=== PATIENT | male | born 1955 | race Caucasian/White ===

== ENCOUNTER 2018-08-12 09:22 | Day surgery (SDC) | payer OTHER ==
[~2018-08-12 09:22] MED LIST: PROPOFOL INJ 200 MG/20 ML VIAL IV ONE
[2018-08-12 11:36] VITALS: BP 112/60
[2018-08-12] MEDS ORDERED: PROPOFOL INJ 200 MG/20 ML VIAL IV ONE (12:42)
--- NOTE | 2018-08-12 13:15 | Operative Report ---
Operative Report DATE OF SURGERY: 08/12/18 Operative Report: The risks, benefits and alternatives of the procedure including the risk of bleeding, perforation requiring surgery are explained to the patient in detail and informed consent is obtained. Patient is taken back to the endoscopy suite and placed in the left, lateral decubital position. Timeout was called. Propofol medication is administered. Rectal examination is done which did not reveal any masses, tears or fissures. An Olympus videoscope was inserted into the patient's rectum. The scope was then carefully advanced all the way to the cecum. Cecum was identified by the usual anatomical landmarks including the ileocecal valve as well as the appendiceal office. Photodocumentation is obtained. Since the patient had previously seen Dr. Kirk the various tattoo sites noticeable in the colon. The scope was then sequentially pulled back via the rest segments of the colon including the ascending colon, hepatic flexure, transverse colon, splenic flexure, descending colon and finally into the rectosigmoid portions of the colon. Retroflexion maneuver is performed. PREOPERATIVE DIAGNOSIS: Personal history of polyps, these were not removed but only site tattooed by Dr. Pinzon POSTOPERATIVE DIAGNOSIS: Sessile polyps noted at each of the tattoo sites. There was one at the hepatic flexure, one at the splenic flexure, 2 in the descending colon, and finally 2 in the sigmoid all of which were removed via snare polypectomy. Diverticulosis. Internal hemorrhoids OPERATION: Colonoscopy with snare polypectomy. Extended procedure time greater than 1 hour SURGEON: YEMI VALLEJO ANESTHESIA: LMAC TISSUE REMOVED OR ALTERED: As noted above. COMPLICATIONS: None. ESTIMATED BLOOD LOSS: None. INTRAOPERATIVE FINDINGS: As noted above. PROCEDURE: Patient tolerated the procedure well. No immediate postprocedure complications are noted. Patient discharged in good condition. Discharge date 08/12/2018. Discharge diet: Regular. Discharge activity: Regular. 2-3-week follow-up to discuss findings. 1 year surveillance colonoscopy. Patient is instructed call the office or proceed to the emergency room should there be any further problems or questions. Wait on the pathology.
== END 2018-08-12 11:35 | disposition home or self-care (01) ==
LOC: END 09:22
PROVIDERS: ATTEND Internal Medicine Gastroenterology
DX: D12.6 Benign neoplasm of colon, unspecified (principal); D12.4 Benign neoplasm of descending colon; D12.5 Benign neoplasm of sigmoid colon; K64.8 Other hemorrhoids; K57.30 Diverticulosis of large intestine without perforation or abscess without bleeding; Z86.010 Personal history of colon polyps; Z80.0 Family history of malignant neoplasm of digestive organs; Z79.899 Other long term (current) drug therapy
CPT/HCPCS: 45385; 811; 88305; J2704

== ENCOUNTER 2019-04-08 07:36 | Day surgery (SDC) | payer OTHER ==
[2019-04-08 06:52] LABS: HEMATOCRIT 45.5 % (37.9-51.0); HEMOGLOBIN 15.7 g/dL (13.5-17.0); MEAN CORPUSCULAR HEMOGLOBIN 31.9 pg (27.0-33.4); MEAN CORPUSCULAR HGB CONC 34.5 g/dL (32.0-36.0); MEAN CORPUSCULAR VOLUME 93 fl (80-97); PLATELET COUNT 111 10^3/uL (150-450); RED BLOOD COUNT 4.91 10^6/uL (4.35-5.55); RED CELL DISTRIBUTION WIDTH 15.3 % (11.5-14.0); WHITE BLOOD COUNT 6.9 10^3/uL (4.0-10.5)
[2019-04-08 07:06] LABS: INTERNATIONAL RATION (INR) 0.92; PROTHROMBIN TIME 12.8 SEC (11.4-15.4)
[2019-04-08 07:13] LABS: ANION GAP 10 (5-19); BLOOD UREA NITROGEN 16 mg/dL (7-20); CARBON DIOXIDE 25 mmol/L (22-30); CHLORIDE 108 mmol/L (98-107); GLUCOSE 88 mg/dL (75-110); POTASSIUM 4.5 mmol/L (3.6-5.0); SODIUM 142.7 mmol/L (137-145)
[~2019-04-08 07:36] MED LIST changes: +ASPIRIN 325 MG TABLET PO ONE; +DIAZEPAM 5 MG TABLET PO PRN; +DIPHENHYDRAMINE HCL 25 MG CAPSULE PO PRN; +HEPARIN SODIUM,PORCINE/NS/PF 2,000 UNIT/1,000 ML RTUINJ IV ONE; +LIDOCAINE 1% INJ-PF (10 MG/ML) 30 ML SDV ONE; +NORMAL SALINE 1000 ML 1,000 ML IV PRN; -PROPOFOL INJ 200 MG/20 ML VIAL IV ONE; +RADIAL COCKTAIL SYRINGE 10 ML IV PRN
--- NOTE | 2019-04-08 07:40 | EKG REPORT ---
SEVERITY:- OTHERWISE NORMAL ECG - SINUS RHYTHM RIGHT AXIS DEVIATION : Confirmed by: Muna Wu MD 08-Apr-2019 07:39:34
[2019-04-08] MEDS ORDERED: MIDAZOLAM HCL INJ 5 MG/1 ML VIAL ONE (07:53)
[2019-04-08] MEDS ORDERED: FENTANYL CITRATE INJ/PF 100 MCG/2 ML AMPUL ONE (07:53)
[2019-04-08] MEDS ORDERED: HEPARIN SOD (PORCINE) 1,000 UNIT/ML 10 ML VIAL ONE (07:53)
--- NOTE | 2019-04-08 09:26 | Operative Report ---
Operative Report DATE OF SURGERY: 04/08/19 PREOPERATIVE DIAGNOSIS: Coronary artery disease abnormal stress test POSTOPERATIVE DIAGNOSIS: Occluded circumflex coronary artery OPERATION: Radial approach left heart catheterization coronary angiography left ventriculography SURGEON: GILBERT FAULKNER ANESTHESIA: Moderate Sedation COMPLICATIONS: None PROCEDURE: After informed consent was obtained the patient was brought to the cardiac catheterization lab and the right wrist was prepared in usual sterile and draped manner. Hemodynamic access was gained using micropuncture technique and the patient was anticoagulated with heparin. An intra-arterial cocktail of verapamil and lidocaine was administered. Selective coronary angiography was performed with a Mason catheter. This was exchanged with pigtail catheter and left ventriculography was performed in standard MEHTA projection. The patient left the Cardiac Catheterization Lab in stable condition, with intact distal pulses and no chest pain or other complications from the procedure. Conscious sedation was initiated, monitored, and maintained during the procedure with the start time of 847 and a completion time of 909 for a total procedure time of 22. A total of 1.5 milligrams of Versed and 75 milligrams and fentanyl were used for conscious sedation. HEMODYNAMIC DATA: Aortic pressure to beginning the case is 102/44 post ventriculography LV pressure is 109/12 aortic pressure on pullback is 100/44 there is no significant gradient across the aortic valve CORONARY ANATOMY: [] ANGIOGRAPHY: [] VENTRICULOGRAPHY: Ventriculography is performed in the MEHTA projection and demonstrates [severely hypo-to akinetic posterior lateral segment of the left ventricle global left ventricular function appears to be well preserved there is calcification of the ascending root and trace to mild mitral regurgitation other regional wall motion is normal] . CORONARY ANGIOGRAPHY: [] LEFT MAIN: [Short but normal] LEFT ANTERIOR DESCENDING: A transapical supplying and LAD there is luminal irregularities but no critical or focal obstructive lesions are seen CIRCUMFLEX CORONARY: The AV groove circumflex after a marginal branch is completely occluded at the site of the prior stent implantation there appears to be a second obtuse marginal and a posterolateral branch that fills retrogradely from left to left collaterals this is a chronic total occlusion RIGHT CORONARY ARTERY: The right coronary artery is dominant supplying the PDA and posterior lateral branches the proximal portion is a 30% stenosis the midportion is a 40% stenosis none of which are flow-limiting IMPRESSION: [ 1. Globally preserved left ventricular systolic function with focal posterior lateral severe hypo-to akinesis 2. No evidence of significant valvular heart disease 3. Single-vessel coronary disease with occlusion of the previously deployed stent 4. Noncritical disease and other vascular distributions Recommendations: Since the patient is asymptomatic continue medical therapy risk factor modification and smoking cessation has been recommended CC Dr. Poe CC Dr. Landa Ros]
[2019-04-08 13:18] VITALS: BP 128/64
== END 2019-04-08 12:25 | disposition home or self-care (01) ==
LOC: CCL 07:36
PROVIDERS: ATTEND Internal Medicine Cardiovascular Disease
DX: I24.0 Acute coronary thrombosis not resulting in myocardial infarction (principal); I25.10 Atherosclerotic heart disease of native coronary artery without angina pectoris; I65.29 Occlusion and stenosis of unspecified carotid artery; I10 Essential (primary) hypertension; E78.5 Hyperlipidemia, unspecified; I73.9 Peripheral vascular disease, unspecified; R09.89 Other specified symptoms and signs involving the circulatory and respiratory systems
CPT/HCPCS: 36415; 83735; 85027; 85610; 80048; 93458; 93005; 93010; J3010; J1644 ×2; J3490 ×4; J2250

== ENCOUNTER 2019-12-06 08:36 | Emergency (ER) | payer OTHER ==
[2019-12-06] MEDS ORDERED: NORMAL SALINE 1000 ML 1,000 ML IV ONE (09:54)
[2019-12-06 10:35] LABS: ABSOLUTE BASOPHILS # (AUTO) 0.1 10^3/uL (0.0-0.2); ABSOLUTE EOSINOPHILS # (AUTO) 0.1 10^3/uL (0.0-0.6); ABSOLUTE LYMPHOCYTES (AUTO) 1.6 10^3/uL (0.5-4.7); ABSOLUTE MONOCYTES (AUTO) 1.1 10^3/uL (0.1-1.4); ABSOLUTE NEUT (AUTO) 6.5 10^3/uL (1.7-8.2); EOSINOPHILS % (AUTO) 0.8 % (0-6); HEMATOCRIT 46.3 % (37.9-51.0); HEMOGLOBIN 16.1 g/dL (13.5-17.0); LYMPHOCYTES % (AUTO) 16.7 % (13-45); MEAN CORPUSCULAR HEMOGLOBIN 31.5 pg (27.0-33.4); MEAN CORPUSCULAR HGB CONC 34.7 g/dL (32.0-36.0); MEAN CORPUSCULAR VOLUME 91 fl (80-97); MONOCYTES % (AUTO) 11.9 % (3-13); PLATELET COUNT 146 10^3/uL (150-450); RED BLOOD COUNT 5.11 10^6/uL (4.35-5.55); RED CELL DISTRIBUTION WIDTH 15.1 % (11.5-14.0); SEGMENTED NEUTROPHILS % (AUTO) 69.6 % (42-78); TOTAL CELLS COUNTED % (AUTO) 100 %; WHITE BLOOD COUNT 9.4 10^3/uL (4.0-10.5)
[2019-12-06 10:43] LABS: ALBUMIN 3.7 g/dL (3.5-5.0); ALKALINE PHOSPHATASE 84 U/L (38-126); ANION GAP 9 (5-19); ASPARTATE AMINO TRANSFERASE 45 U/L (17-59); BILIRUBIN,DIRECT 0.2 mg/dL (0.0-0.4); BILIRUBIN,TOTAL 0.8 mg/dL (0.2-1.3); BLOOD UREA NITROGEN 18 mg/dL (7-20); CALCIUM 9.5 mg/dL (8.4-10.2); CARBON DIOXIDE 27 mmol/L (22-30); CHLORIDE 103 mmol/L (98-107); GLUCOSE 100 mg/dL (75-110); POTASSIUM 4.4 mmol/L (3.6-5.0); TOTAL PROTEIN 6.9 g/dL (6.3-8.2)
[2019-12-06 10:48] LABS: APPEARANCE,URINE SLIGHTLY-CLOUDY; BILIRUBIN,URINE NEGATIVE (NEGATIVE); COLOR,URINE AMBER; GLUCOSE, URINE NEGATIVE (NEGATIVE); KETONES,URINE TRACE mg/dL (NEGATIVE); LEUKOCYTE ESTERASE,URINE NEGATIVE (NEGATIVE); NITRITE,URINE NEGATIVE (NEGATIVE); PROTEIN,URINE 100 mg/dL (NEGATIVE); URINE SPECIFIC GRAVITY 1.027
[2019-12-06] MEDS ORDERED: DOXYCYCLINE HYCLATE 100 MG TABLET PO ONE (11:17)
--- NOTE | 2019-12-06 11:33 | ER Document Report ---
ED General - General Chief Complaint: Skin Sore(s) Stated Complaint: SKIN ISSUES/FEVER Time Seen by Provider: 12/06/19 09:32 Primary Care Provider: FREDY PEREIRA DO [ACTIVE STAFF] - Follow up in 3-5 days (for dermatology follow up) AVE WAGGONER MD [Primary Care Provider] - Follow up in 3-5 days TRAVEL OUTSIDE OF THE [place] IN LAST 30 DAYS: No - HPI Notes: 64 year old male to the ED with with C/O progressively worsening rash to his legs, arms, back and fever with Tmax of 103. States that he began with the rash to his chest, face, and arms on this past Sunday. States that this continues to get worse and then he started to have fevers on Sunday. States he saw his PCP on and was diagnosed with the flu. He was started on Tamiflu. Of note, the patient reports that his influenza swab was negative. States since then, the rash has gotten worse and more painful. He continues to have high fevers. Denies chest pain, SOB, NVD, abd pain, headache, syncope. he does endorse bilateral thigh muscle pain. - Related Data Allergies/Adverse Reactions: No Known Allergies Allergy (Verified 12/06/19 08:43) Home Medications: lipitor 80. plavix 75. lopressor 12.5. nitroglycerin. asa 81. megareds 350. isosorbide mononiter 30. mens multivitamin. advair HFA. tamiflu Past Medical History - General Information source: Patient, Relative - Social History Smoking Status: Current Every Day Smoker Chew tobacco use (# tins/day): No Frequency of alcohol use: None Drug Abuse: None Lives with: Spouse/Significant other Family History: Hypertension Patient has suicidal ideation: No Patient has homicidal ideation: No - Past Medical History Cardiac Medical History: Reports: Hx Coronary Artery Disease, Hx Heart Attack - MARCH 17, 2010 Denies: Hx Hypertension - TAKES METOPROLOL SINCE HAVING HEART STENT PLACED. Pulmonary Medical History: Reports: Hx COPD Denies: Hx Asthma, Hx Bronchitis, Hx Pneumonia Neurological Medical History: Denies: Hx Cerebrovascular Accident, Hx Seizures Musculoskeletal Medical History: Denies Hx Arthritis - Immunizations Hx Diphtheria, Pertussis, Tetanus Vaccination: Yes Hx Pneumococcal Vaccination: 09/12/17 Review of Systems - Review of Systems Constitutional: Chills, Fever, Malaise EENT: No symptoms reported. denies: Ear pain, Nose congestion, Nose discharge, Throat pain Cardiovascular: Chest pain, Palpitations, Heart racing. denies: Dizziness, Lightheaded, Edema Respiratory: denies: Cough, Short of breath Gastrointestinal: denies: Abdominal pain, Diarrhea, Nausea, Vomiting Genitourinary: No symptoms reported Male Genitourinary: No symptoms reported Musculoskeletal: No symptoms reported Skin: See HPI, Rash Hematologic/Lymphatic: No symptoms reported Neurological/Psychological: No symptoms reported -: Yes All other systems reviewed and negative Physical Exam - Vital signs Vitals: Temp Pulse Resp BP Pulse Ox 99.1 F 99 18 148/65 H 97 12/06/19 08:39 12/06/19 08:39 12/06/19 08:39 12/06/19 08:39 12/06/19 08:39 Interpretation: Normal - General General appearance: Appears well, Alert In distress: None - HEENT Head: Normocephalic, Atraumatic Eyes: Normal Pupils: PERRL Ears: Normal External canal: Normal Tympanic membrane: Normal Sinus: Normal Nasal: Normal Mouth/Lips: Normal Mucous membranes: Normal Pharynx: Normal. No: Uvular edema, Potential airway comprom. Neck: Normal, Supple. No: Lymphadenopathy, Meningismus - Respiratory Respiratory status: No respiratory distress. No: Retractions, Tachypnea Chest status: Nontender. No: Accessory muscle use Breath sounds: Normal. No: Decreased air movement, Rales, Rhonchi, Stridor, Wheezing Chest palpation: Normal - Cardiovascular Rhythm: Regular Heart sounds: Normal auscultation Murmur: No - Abdominal Inspection: Normal Distension: No distension Bowel sounds: Normal Tenderness: Nontender Organomegaly: No organomegaly - Back Back: Normal, Nontender, CVA tenderness - Neurological Neuro grossly intact: Yes Cognition: Normal Orientation: AAOx4 Artur Coma Scale Eye Opening: Spontaneous Artur Coma Scale Verbal: Oriented Artur Coma Scale Motor: Obeys Commands Kite Coma Scale Total: 15 Speech: Normal Cranial nerves: Normal Cerebellar coordination: Normal. No: Gait ataxia Motor strength normal: LUE, RUE, LLE, RLE Additional motor exam normals: Equal mustanger. No: Pronator drift Sensory: Normal - Psychological Associated symptoms: Normal affect, Normal mood - Skin Skin Temperature: Warm Skin Moisture: Dry Skin Color: Normal Skin irregularity: Rash - to the legs, arms, back, there are several areas of erythematous nodules that are TTP. They do not have sloughing, vesicles, fluctuance, draining purulence. Most tracey but some have some non blanching portions consistent with purpura. Course - Re-evaluation Re-evalutation: 12/06/[address] Sood. We agree this is likely erythema nodosum. We will cross cover with Abx -- doxycycline. Labs are reassuring, pending blood cultures. Will have him follow closely with dermatology. Return here immediately if worse. Patient agrees with the plan. - Vital Signs Vital signs: Temp Pulse Resp BP Pulse Ox 97.9 F 77 16 110/59 L 94 12/06/19 11:37 12/06/19 11:37 12/06/19 11:37 12/06/19 11:37 12/06/19 11:37 - Laboratory Result Diagrams: 12/06/19 09:58 12/06/19 09:58 Laboratory results interpreted by me: 12/06/19 12/06/19 09:58 10:07 RDW 15.1 H Plt Count 146 L Urine Protein 100 H Urine Ketones TRACE H Urine Urobilinogen 4.0 H Urine Ascorbic Acid 20 H Discharge - Discharge Clinical Impression: Erythema nodosum, Leg cramps Fever Qualifiers: Fever type: unspecified Qualified Code(s): R50.9 - Fever, unspecified Condition: Stable Disposition: HOME, SELF-CARE Instructions: Fever ([facility]) Additional Instructions: CONTINUE MOTRIN AND TYLENOL. COMPLETE STEROIDS, COMPLETE ANTIBIOTICS. RETURN IF WORSENING SYMPTOMS. FOLLOW UP WITH DERMATOLOGY. Prescriptions: Doxycycline Hyclate 100 mg PO BID #20 capsule Cyclobenzaprine HCl [Flexeril 10 mg Tablet] 10 mg PO TID #21 tablet Methylprednisolone [Medrol Dosepack (4 mg/Tab) 21 Tab/Dosepak] 4 mg PO ASDIR PRN #21 tab.ds.pk PRN Reason: Referrals: AVE WAGGONER MD [Primary Care Provider] - Follow up in 3-5 days FREDY PEREIRA DO [ACTIVE STAFF] - Follow up in 3-5 days (for dermatology follow up)
[2019-12-06 11:42] VITALS: BP 110/59
== END 2019-12-06 11:50 | disposition home or self-care (01) ==
LOC: ER 08:36
DX: R21 Rash and other nonspecific skin eruption (principal); R50.9 Fever, unspecified; L52 Erythema nodosum; R25.2 Cramp and spasm
CPT/HCPCS: 99283; 96360; 36415; 87040; 87070; 87205; 83605; 85025; 87075; 80053; 81001; J7030

== ENCOUNTER 2020-03-21 12:34 | Emergency (ER) | payer OTHER ==
--- NOTE | 2020-03-21 12:37 | ER Document Report ---
ED Medical Screen (RME) - General Chief Complaint: Laceration Stated Complaint: LACERATION Time Seen by Provider: 03/21/20 12:35 Primary Care Provider: AVE WAGGONER MD [Primary Care Provider] - Follow up as needed Mode of Arrival: Ambulatory Information source: Patient Notes: 64-year-old male with history of NM on Plavix presents with laceration to the dorsal left hand. Patient reports he was using a circular saw when he cut himself. Patient is right-handed. Reports last tetanus was within the last five years. I have greeted and performed a rapid initial assessment of this patient. A comprehensive ED assessment and evaluation of the patient, analysis of test results and completion of the medical decision making process will be conducted by additional ED providers. TRAVEL OUTSIDE OF THE [place] IN LAST 30 DAYS: No - Related Data Allergies/Adverse Reactions: No Known Allergies Allergy (Verified 12/06/19 08:43) Past Medical History - Past Medical History Cardiac Medical History: Reports: Hx Coronary Artery Disease, Hx Heart Attack - MARCH 17, 2010 Denies: Hx Hypertension - TAKES METOPROLOL SINCE HAVING HEART STENT PLACED. Pulmonary Medical History: Reports: Hx COPD Denies: Hx Asthma, Hx Bronchitis, Hx Pneumonia Neurological Medical History: Denies: Hx Cerebrovascular Accident, Hx Seizures Musculoskeltal Medical History: Denies Hx Arthritis - Immunizations Hx Diphtheria, Pertussis, Tetanus Vaccination: Yes Doctor's Discharge - Discharge Referrals: AVE WAGGONER MD [Primary Care Provider] - Follow up as needed
[2020-03-21 12:46] VITALS: BP 125/89
[2020-03-21] MEDS ORDERED: LIDOCAINE 1% INJ-PF (10 MG/ML) 30 ML SDV INJ ONE (12:47)
--- NOTE | 2020-03-21 13:14 | ER Document Report ---
HPI - HPI Time Seen by Provider: 03/21/20 12:35 Pain Level: 1 Notes: Patient is a 64-year-old male presenting to the emergency department chief complaint of laceration to his left hand. Patient reports he was using a circular saw when the saw jumped striking the top of his hand. He is left-hand dominant. He reports this occurred just prior to arrival. He reports that he has had a tetanus shot in the last 5 years. Patient reports he takes Plavix. - REPRODUCTIVE Reproductive: DENIES: : - MUSCULOSKELETAL Musculoskeletal: REPORTS: Extremity pain Past Medical History - General Information source: Patient - Social History Smoking Status: Current Every Day Smoker Chew tobacco use (# tins/day): No Frequency of alcohol use: None Drug Abuse: None Family History: Hypertension Patient has homicidal ideation: No - Past Medical History Cardiac Medical History: Reports: Hx Coronary Artery Disease, Hx Heart Attack - MARCH 17, 2010 Denies: Hx Hypertension - TAKES METOPROLOL SINCE HAVING HEART STENT PLACED. Pulmonary Medical History: Reports: Hx COPD Denies: Hx Asthma, Hx Bronchitis, Hx Pneumonia Neurological Medical History: Denies: Hx Cerebrovascular Accident, Hx Seizures Musculoskeletal Medical History: Denies Hx Arthritis - Immunizations Hx Diphtheria, Pertussis, Tetanus Vaccination: Yes Hx Pneumococcal Vaccination: 09/12/17 Vertical Provider Document - CONSTITUTIONAL Notes: PHYSICAL EXAMINATION: GENERAL: Well-appearing, well-nourished and in no acute distress. HEAD: Atraumatic, normocephalic. EYES: Pupils equal round extraocular movements intact, conjunctiva are normal. ENT: Nares patent NECK: Normal range of motion LUNGS: No respiratory distress Musculoskeletal: Normal range of motion to wrist and all digits of left hand. Cap refill less than 3 seconds in all fingers. Strong radial pulse. 2 cm laceration noted over the dorsal surface of the left hand over the fourth and fifth metacarpals. This approximates well. There is no active bleeding noted. NEUROLOGICAL: Normal speech, normal gait. PSYCH: Normal mood, normal affect. SKIN: Warm, Dry, normal turgor, no rashes or lesions noted. - INFECTION CONTROL TRAVEL OUTSIDE OF THE [place] IN LAST 30 DAYS: No Course - Re-evaluation Re-evalutation: X-ray negative for any fracture. Laceration was repaired under sterile technique, patient tolerated well. Neurovascularly intact. See procedure note. Patient will be started on antibiotics and will be instructed to have sutures removed in 10 days. - Vital Signs Vital signs: Temp Pulse Resp BP Pulse Ox 98.3 F 95 19 125/89 H 94 03/21/20 12:46 03/21/20 12:40 03/21/20 12:40 03/21/20 12:40 03/21/20 12:40 Procedures - Laceration/Wound Repair Left hand Wound length (cm): 2 Wound's Depth, Shape: Superficial Laceration pre-procedure: Sterile PPE donned Anesthetic type: 1% Lidocaine Irrigated w/ Saline (mLs): 25 Suture Size/Type: 4:0 Number of Sutures: 5 Post-procedure NV exam normal: Yes Complications: No Discharge - Discharge Clinical Impression: Laceration Condition: Stable Disposition: HOME, SELF-CARE Additional Instructions: Laceration Care Your laceration has been sutured to keep the skin edges aligned during healing. The time of suture removal depends on the nature and location of your cut. Please follow the care instructions the doctor has outlined for you and return for further care, according to the schedule you've been given. Keep the wound and dressing clean. Unless you were told otherwise, you may shower daily, blotting the wound dry with a clean, unused towel. At other times, If the dressing gets wet or blood soaked, remove it and blot the wound dry, then reapply a new dressing. Unless you were instructed otherwise, dressi ngs should be changed at least daily. If any signs of infection occur (swelling, redness, increasing tenderness, red streaks, tender lumps in the armpit or groin above the laceration, or fever), see the doctor immediately. Please return to the emergency department or your primary care provider in 10 days for suture removal. Please take antibiotic as prescribed. Please return earlier if you develop any signs of infection such as increased redness, swelling, foul-smelling drainage or fever. Prescriptions: Cephalexin [Keflex] 500 mg PO BID #14 capsule Referrals: AVE WAGGONER MD [Primary Care Provider] - Follow up as needed
--- NOTE | 2020-03-21 13:29 | RADIOLOGY REPORT (SQ) ---
EXAM DESCRIPTION: HAND LEFT 3 VIEWS IMAGES COMPLETED DATE/TIME: 03/21/2020 1:01 pm REASON FOR STUDY: laceration COMPARISON: None. EXAM PARAMETERS: NUMBER OF VIEWS: Three views. TECHNIQUE: AP, lateral and oblique radiographic images acquired of the left hand. LIMITATIONS: None. FINDINGS: MINERALIZATION: Normal. BONES: No acute fracture or dislocation. No worrisome bone lesions. JOINTS: No effusions. SOFT TISSUES: No soft tissue swelling. No foreign body. OTHER: No other significant finding. IMPRESSION: NEGATIVE STUDY OF THE LEFT HAND. NO RADIOGRAPHIC EVIDENCE OF ACUTE INJURY. TECHNICAL DOCUMENTATION: JOB ID: [id number] 2010 [employer]- All Rights Reserved Reading location - IP/workstation name: [email or web address]
== END 2020-03-21 13:42 | disposition home or self-care (01) ==
LOC: ER 12:34
DX: S61.412A Laceration without foreign body of left hand, initial encounter (principal); W29.8XXA Contact with other powered hand tools and household machinery, initial encounter; F17.200 Nicotine dependence, unspecified, uncomplicated; J44.9 Chronic obstructive pulmonary disease, unspecified; I25.10 Atherosclerotic heart disease of native coronary artery without angina pectoris; Z79.02 Long term (current) use of antithrombotics/antiplatelets; I25.2 Old myocardial infarction
CPT/HCPCS: 99283; 73130; 12001; J3490